=== PATIENT | female | born 1975 | race African-American/Black ===

== ENCOUNTER 2017-04-04 08:28 | Emergency (ER) | payer MEDICARE ==
[~2017-04-04] VITALS: Ht 160 cm; Wt 100.0 kg
[~2017-04-04 08:28] MED LIST: AMETHIA PO; AMITRIPTYLIN25 MG PO; AMOXICILLIN500 MG OR; ATROPINE 1% OP; B COMPLE2 PO; CIPRO500 MG OR; CLARITIN10 MG PO; CLONIDINE0.1 MG OR; DARVOCET-N 100100 MG OR; FLEXERIL PO; GABAPENTIN300 MG PO; HUMALOG100 MG/ML SC; HUMALOG100 UNIT/M SC; HUMULIN N1 ML SC; HUMULIN R1 M1 SC; HUMULIN R1 ML SC; HYDROCHLOROT12.5 M1 OR; KEFLEX500 MG PO; LANTUS100 MG/ML SC; LEVEMIR SC; LIPITOR20 MG PO; LISINOPRIL/HYDR1 TA1 PO; LISINOPRIL20 MG OR; LORTAB 5 OR; LORTAB 7.5 OR; LORTAB 7.57.5 MG PO; LOTREL1 CA1 OR; MUCINEX600 MG OR; NAPROSYN500 MG PO; NIFEDICAL XL30 MG PO; NIFEDIPINE30 MG PO; NIFEDIPINE60 M2 OR; NIFEDIPINE60 MG PO; NOVOLIN 70/30 SC; NOVOLIN N1 ML SC; NOVOLIN N1000 UNITS SC; NOVOLIN R IJ; PENICILLN VK500 MG PO; PERCOCET 10/31 COMBO PO; SEASONIQUE PO; TYLENOL # 31 TAB OR; ULTRAM50 MG PO; VICODIN1 TAB OR; ZITHROMAX250 MG OR; [UNRECOGNIZED DRUG - REMARK]
[2017-04-04] MEDS ORDERED: LISINOPRIL20 MG PO (08:33)
[2017-04-04] MEDS ORDERED: LANTUS SOL100 UNIT/M SC (08:35)
[2017-04-04] MEDS ORDERED: HUMALOG KW100 UNIT/M SC ×2 (08:36→08:37)
[2017-04-04] MEDS ORDERED: MAXIDE1 COMBO PO (08:38)
[2017-04-04] MEDS ORDERED: AMLODIPINE5 MG PO (08:38)
[2017-04-04] MEDS ORDERED: LYRICA50 MG PO (08:39)
[2017-04-04] MEDS ORDERED: MUCINEX600 MG PO (09:25)
[2017-04-04] MEDS ORDERED: AMOXICILLIN500 MG PO (09:25)
[2017-04-04 09:39] VITALS: BP 132/65
== END 2017-04-04 09:45 | disposition home or self-care (01) ==
LOC: ED 08:28
DX: J40 Bronchitis, not specified as acute or chronic (principal); H54.8 Legal blindness, as defined in USA; E11.9 Type 2 diabetes mellitus without complications; I10 Essential (primary) hypertension; Z79.4 Long term (current) use of insulin

== ENCOUNTER 2017-07-15 13:27 | Emergency (ER) | payer MEDICARE ==
[~2017-07-15] VITALS: Ht 160 cm; Wt 95.0 kg
[~2017-07-15 13:27] MED LIST changes: +AMLODIPINE5 MG PO; +AMOXICILLIN500 MG PO; +HUMALOG KW100 UNIT/M SC; +LANTUS SOL100 UNIT/M SC; +LISINOPRIL20 MG PO; +LYRICA50 MG PO; +MAXIDE1 COMBO PO; +MUCINEX600 MG PO
[2017-07-15] MEDS ORDERED: ULTRAM50 M1 PO (14:43)
[2017-07-15] MEDS ORDERED: CEPHALEXIN500 MG PO (14:43)
[2017-07-15 14:45] VITALS: BP 136/71
== END 2017-07-15 14:45 | disposition home or self-care (01) ==
LOC: ED 13:27
DX: J02.9 Acute pharyngitis, unspecified (principal); I88.9 Nonspecific lymphadenitis, unspecified; I10 Essential (primary) hypertension; E11.9 Type 2 diabetes mellitus without complications; H54.8 Legal blindness, as defined in USA; Z79.4 Long term (current) use of insulin

== ENCOUNTER 2018-02-21 17:36 | Emergency (ER) | payer MEDICARE ==
[~2018-02-21] VITALS: Ht 160 cm; Wt 90.0 kg
[~2018-02-21 17:36] MED LIST changes: +CEPHALEXIN500 MG PO; +ULTRAM50 M1 PO
[2018-02-21 18:10] LABS: URINE BLOOD DIPSTICK NEGATIVE (NEGATIVE); URINE COLOR YELLOW; URINE GLUCOSE - DIPSTICK NEGATIVE (NEGATIVE); URINE KETONE NEGATIVE (NEGATIVE); URINE LEUK ESTERASE NEGATIVE (NEGATIVE); URINE NITRITE - DIPSTICK NEGATIVE (Negative); URINE PH 5.5 (4.5-8.0); URINE PROTEIN - DIPSTICK >=300 mg/dL (NEG-TRACE); URINE SPECIFIC GRAVITY >=1.030; URINE UROBILINOGEN - DIPSTICK 0.2 E.U./dL (0.2)
[2018-02-21 18:11] LABS: URINE BILIRUBIN - DIPSTICK NEGATIVE (NEGATIVE); URINE CLARITY HAZY
[2018-02-21 18:22] LABS: URINE SQUAMOUS EPITHELIAL CELL MODERATE EPI/hpf (0-FEW)
[2018-02-21 18:33] LABS: HEMATOCRIT 38.6 % (37.0-47.0); HEMOGLOBIN 13.3 g/dl (12.0-16.0); IMMATURE GRANULOCYTES 0.4 % (0.0-1.0); MEAN CORPUSCULAR HGB 28.2 pG CALC (26.0-32.0); MEAN CORPUSCULAR HGB CONC 34.5 g/L CALC (32.0-36.0); NEUT# 5.95 thou/uL (2.00-7.15); RED BLOOD COUNT 4.71 mill/uL (4.20-5.60); RED CELL DISTRI WIDTH 13.5 % (11.5-15.5)
[2018-02-21] MEDS ORDERED: LOSARTAN POT25 MG PO (18:40)
[2018-02-21] MEDS ORDERED: TOUJEO SOL300 UNIT/M (18:40)
[2018-02-21 18:46] LABS: BILIRUBIN, TOTAL 1.2 mg/dL (0.0-1.4); CREATININE 1.4 mg/dL (0.5-1.0); POTASSIUM 4.2 mmol/l (3.5-5.1); TOTAL PROTEIN 7.6 g/dL (6.3-8.2)
[2018-02-21 20:34] VITALS: BP 139/68
[2018-02-21] MEDS ORDERED: CIPROFLOXACN500 MG PO (20:37)
[2018-02-21] MEDS ORDERED: PYRIDIUM200 MG PO (20:37)
== END 2018-02-21 20:33 | disposition home or self-care (01) ==
LOC: ED 17:36
DX: N39.0 Urinary tract infection, site not specified (principal); E11.39 Type 2 diabetes mellitus with other diabetic ophthalmic complication; H54.7 Unspecified visual loss

== ENCOUNTER 2018-11-19 16:11 | Emergency (ER) | payer MEDICARE ==
[~2018-11-19] VITALS: Ht 160 cm; Wt 91.4 kg
[~2018-11-19 16:11] MED LIST changes: +CIPROFLOXACN500 MG PO; +CLARITIN10 M1 PO; -CLARITIN10 MG PO; +LOSARTAN POT25 MG PO; +PYRIDIUM200 MG PO; +TOUJEO SOL300 UNIT/M
[2018-11-19] MEDS ORDERED: NEOMYCIN/POLYMY1 SOL AD ×2 (16:55→16:59)
[2018-11-19] MEDS ORDERED: AMOXICILLIN875 MG PO ×2 (16:55→16:59)
[2018-11-19 17:02] VITALS: BP 125/69
== END 2018-11-19 17:02 | disposition home or self-care (01) ==
LOC: ED 16:11
DX: H66.91 Otitis media, unspecified, right ear (principal); H60.91 Unspecified otitis externa, right ear

== ENCOUNTER 2019-09-07 | Emergency (ER) | payer MEDICARE ==
[~2019-09-07] MED LIST changes: +AMLODIPINE BESYL5 MG PO; -AMLODIPINE5 MG PO; +AMOXICILLIN875 MG PO; +COZAAR100 MG PO; -LOSARTAN POT25 MG PO; +NEOMYCIN/POLYMY1 SOL AD; -TOUJEO SOL300 UNIT/M; +TOUJEO SOL300 UNIT/M SC
[2019-09-07 09:12] LABS: ALBUMIN 4.3 g/dL (3.2-5.0); CREATININE 1.4 mg/dL (0.5-1.0); POTASSIUM 4.1 mmol/l (3.5-5.1); TOTAL PROTEIN 8.5 g/dL (6.3-8.2)
[2019-09-07 09:15] LABS: BILIRUBIN, TOTAL 0.7 mg/dL (0.0-1.4)
[2019-09-07] MEDS ORDERED: MAXZIDE-2537.5 MG/TA PO (09:22)
[2019-09-07] MEDS ORDERED: OZEMPIC2 MG/1.5 M SC (09:22)
[2019-09-07] MEDS ORDERED: GABAPENTIN800 MG PO (09:23)
[2019-09-07] MEDS ORDERED: [UNRECOGNIZED DRUG - CODE] PO (09:24)
[2019-09-07 09:29] LABS: HEMATOCRIT 35.7 % (37.0-47.0); HEMOGLOBIN 11.8 g/dl (12.0-16.0); IMMATURE GRANULOCYTES 0.4 % (0.0-5.0); MEAN CELL VOLUME 83.6 fL CALC (80.0-100.0); MEAN CORPUSCULAR HGB 27.6 pG CALC (26.0-32.0); MEAN CORPUSCULAR HGB CONC 33.1 g/L CALC (32.0-36.0); NEUT# 7.65 thou/uL (2.00-7.15); RED BLOOD COUNT 4.27 mill/uL (4.20-5.60); RED CELL DISTRI WIDTH 13.3 % (11.5-15.5)
[2019-09-07] MEDS ORDERED: DOXYCYCL HYC100 M4 PO (10:22)
== END 2019-09-07 10:40 | disposition home or self-care (01) ==
PROVIDERS: Family Medicine
DX: J06.9 Acute upper respiratory infection, unspecified (principal); I10 Essential (primary) hypertension; E11.40 Type 2 diabetes mellitus with diabetic neuropathy, unspecified; E11.69 Type 2 diabetes mellitus with other specified complication; H54.7 Unspecified visual loss; Z79.4 Long term (current) use of insulin

== ENCOUNTER 2019-12-07 | Emergency (ER) | payer MEDICARE ==
[~2019-12-07] MED LIST changes: +DOXYCYCL HYC100 M4 PO; +GABAPENTIN800 MG PO; +MAXZIDE-2537.5 MG/TA PO; +OZEMPIC2 MG/1.5 M SC; +[UNRECOGNIZED DRUG - CODE] PO
[2019-12-07 08:15] LABS: URINE BILIRUBIN - DIPSTICK NEGATIVE (NEGATIVE); URINE BLOOD DIPSTICK NEGATIVE (NEGATIVE); URINE COLOR YELLOW; URINE GLUCOSE - DIPSTICK NEGATIVE (NEGATIVE); URINE KETONE NEGATIVE (NEGATIVE); URINE LEUK ESTERASE NEGATIVE (NEGATIVE); URINE NITRITE - DIPSTICK NEGATIVE (Negative); URINE PH 5.5 (4.5-8.0); URINE PROTEIN - DIPSTICK NEGATIVE (NEG-TRACE); URINE UROBILINOGEN - DIPSTICK 0.2 E.U./dL (0.2)
[2019-12-07] MEDS ORDERED: DIFLUCAN150 MG PO (08:47)
[2019-12-07] MEDS ORDERED: NITROFURANTN100 M2 PO (08:47)
== END 2019-12-07 09:01 | disposition home or self-care (01) ==
PROVIDERS: Family Medicine
DX: B37.3 Candidiasis of vulva and vagina (principal); N39.0 Urinary tract infection, site not specified; I10 Essential (primary) hypertension; E11.40 Type 2 diabetes mellitus with diabetic neuropathy, unspecified; E11.69 Type 2 diabetes mellitus with other specified complication; H54.7 Unspecified visual loss; Z79.4 Long term (current) use of insulin

== ENCOUNTER 2020-01-28 18:08 | Emergency (ER) | payer MEDICARE ==
[~2020-01-28] VITALS: Ht 160 cm; Wt 87.2 kg
[~2020-01-28 18:08] MED LIST changes: +DIFLUCAN150 MG PO; +NITROFURANTN100 M2 PO
[2020-01-28 19:38] LABS: HEMATOCRIT 34.9 % (37.0-47.0); HEMOGLOBIN 11.5 g/dl (12.0-16.0); IMMATURE GRANULOCYTES 0.3 % (0.0-5.0); MEAN CELL VOLUME 83.9 fL CALC (80.0-100.0); MEAN CORPUSCULAR HGB 27.6 pG CALC (26.0-32.0); NEUT# 3.56 thou/uL (2.00-7.15); RED BLOOD COUNT 4.16 mill/uL (4.20-5.60); RED CELL DISTRI WIDTH 13.7 % (11.5-15.5)
[2020-01-28 19:39] LABS: URINE BILIRUBIN - DIPSTICK NEGATIVE (NEGATIVE); URINE BLOOD DIPSTICK LARGE (NEGATIVE); URINE COLOR YELLOW; URINE GLUCOSE - DIPSTICK NEGATIVE (NEGATIVE); URINE KETONE NEGATIVE (NEGATIVE); URINE LEUK ESTERASE NEGATIVE (NEGATIVE); URINE NITRITE - DIPSTICK NEGATIVE (Negative); URINE PROTEIN - DIPSTICK TRACE mg/dL (NEG-TRACE); URINE SPECIFIC GRAVITY 1.015; URINE UROBILINOGEN - DIPSTICK 0.2 E.U./dL (0.2)
[2020-01-28 19:50] LABS: URINE SQUAMOUS EPITHELIAL CELL FEW EPI/hpf (0-FEW)
[2020-01-28 19:58] LABS: ALBUMIN 4.4 g/dL (3.2-5.0); ALKALINE PHOSPHATASE 73 u/l (38-126); ANION GAP 13 (6-22 (CALC)); BILIRUBIN, TOTAL 0.7 mg/dL (0.0-1.4); BUN 24 mg/dL (7-17); BUN/CREATININE RATIO 17 (12-20 (CALC)); CARBON DIOXIDE 24 mmol/l (22-30); CHLORIDE 104 mmol/l (95-108); CREATININE 1.4 mg/dL (0.5-1.0); GFR 41 ML/MIN (>=60 (CALC)); GFR FOR AFR.AMER. 50 ML/MIN (>=60 (CALC)); POTASSIUM 4.3 mmol/l (3.5-5.1); SGOT/AST 28 u/l (14-36); SODIUM 137 mmol/l (137-146); TOTAL PROTEIN 8.2 g/dL (6.3-8.2)
[2020-01-28 21:55] VITALS: BP 127/60
== END 2020-01-28 21:55 | disposition home or self-care (01) ==
LOC: ED 18:08
PROVIDERS: Student in an Organized Health Care Education/Training Program
DX: R42 Dizziness and giddiness (principal); E86.0 Dehydration; I10 Essential (primary) hypertension; E11.22 Type 2 diabetes mellitus with diabetic chronic kidney disease; I12.9 Hypertensive chronic kidney disease with stage 1 through stage 4 chronic kidney disease, or unspecified chronic kidney disease; N18.3 Chronic kidney disease, stage 3 (moderate); E11.40 Type 2 diabetes mellitus with diabetic neuropathy, unspecified; E11.39 Type 2 diabetes mellitus with other diabetic ophthalmic complication; H54.3 Unqualified visual loss, both eyes; Z79.4 Long term (current) use of insulin

== ENCOUNTER 2020-08-25 11:46 | Emergency (ER) | payer MEDICARE ==
[~2020-08-25] VITALS: Ht 160 cm; Wt 82.7 kg
[2020-08-25] MEDS ORDERED: ZPAK PO (13:26)
[2020-08-25 14:00] VITALS: BP 148/81
[2020-08-26] MEDS ORDERED: ONDANSETRON4 MG PO (23:17)
== END 2020-08-25 13:55 | disposition home or self-care (01) ==
LOC: ED 11:46
DX: U07.1 COVID-19 (principal); E11.40 Type 2 diabetes mellitus with diabetic neuropathy, unspecified; E11.22 Type 2 diabetes mellitus with diabetic chronic kidney disease; I12.9 Hypertensive chronic kidney disease with stage 1 through stage 4 chronic kidney disease, or unspecified chronic kidney disease; N18.30 Chronic kidney disease, stage 3 unspecified; E11.39 Type 2 diabetes mellitus with other diabetic ophthalmic complication; H54.7 Unspecified visual loss; Z79.4 Long term (current) use of insulin

== ENCOUNTER 2020-08-26 20:05 | Emergency (ER) | payer MEDICARE ==
[~2020-08-26] VITALS: Ht 160 cm; Wt 82.7 kg
[~2020-08-26 20:05] MED LIST changes: +ZPAK PO
[2020-08-26 21:29] LABS: HEMATOCRIT 34.5 % (37.0-47.0); IMMATURE GRANULOCYTES 0.3 % (0.0-5.0); MEAN CELL VOLUME 86.5 fL CALC (80.0-100.0); MEAN CORPUSCULAR HGB 27.6 pG CALC (26.0-32.0); MEAN CORPUSCULAR HGB CONC 31.9 g/dL CAL (32.0-36.0); NEUT# 6.03 thou/uL (2.00-7.15); RED BLOOD COUNT 3.99 mill/uL (4.20-5.60); RED CELL DISTRI WIDTH 13.6 % (11.5-15.5)
[2020-08-26 21:30] LABS: URINE BLOOD DIPSTICK SMALL (NEGATIVE); URINE GLUCOSE - DIPSTICK NEGATIVE (NEGATIVE); URINE KETONE NEGATIVE (NEGATIVE); URINE LEUK ESTERASE TRACE (NEGATIVE); URINE PH 5.5 (4.5-8.0); URINE PROTEIN - DIPSTICK >=300 mg/dL (NEG-TRACE); URINE SPECIFIC GRAVITY 1.025
[2020-08-26 21:31] LABS: URINE BILIRUBIN - DIPSTICK SMALL (NEGATIVE); URINE COLOR ORANGE; URINE NITRITE - DIPSTICK POSITIVE (Negative)
[2020-08-26 21:36] LABS: URINE RBC 0-2 RBC/hpf (0-5); URINE SQUAMOUS EPITHELIAL CELL MODERATE EPI/hpf (0-FEW); URINE WBC 0-2 WBC/hpf (0-5)
[2020-08-26 21:47] LABS: ALBUMIN 4.5 g/dL (3.2-5.0); BILIRUBIN, TOTAL 2.8 mg/dL (0.0-1.4); CREATININE 1.8 mg/dL (0.5-1.0); TOTAL PROTEIN 8.7 g/dL (6.3-8.2)
[2020-08-26] MEDS ORDERED: ONDANSETRON4 MG PO (23:17)
[2020-08-26 23:30] VITALS: BP 139/61
[2020-08-27] MEDS ORDERED: PHENERGAN25 MG/TAB PO (09:31)
== END 2020-08-27 | disposition home or self-care (01) ==
LOC: ED 20:05
PROVIDERS: Emergency Medicine
DX: U07.1 COVID-19 (principal); R11.2 Nausea with vomiting, unspecified; R10.9 Unspecified abdominal pain; R53.1 Weakness; E86.0 Dehydration; I12.9 Hypertensive chronic kidney disease with stage 1 through stage 4 chronic kidney disease, or unspecified chronic kidney disease; E11.22 Type 2 diabetes mellitus with diabetic chronic kidney disease; N18.30 Chronic kidney disease, stage 3 unspecified; E11.39 Type 2 diabetes mellitus with other diabetic ophthalmic complication; H54.7 Unspecified visual loss; E11.40 Type 2 diabetes mellitus with diabetic neuropathy, unspecified; Z79.4 Long term (current) use of insulin

== ENCOUNTER 2020-08-29 09:36 | Inpatient (IN) | payer MEDICARE ==
[~2020-08-29] VITALS: Ht 160 cm; Wt 82.0 kg
[~2020-08-29 09:36] MED LIST changes: +ONDANSETRON4 MG PO; +PHENERGAN25 MG/TAB PO
[2020-08-29 10:19] LABS: HEMATOCRIT 35.1 % (37.0-47.0); HEMOGLOBIN 11.2 g/dl (12.0-16.0); IMMATURE GRANULOCYTES 0.4 % (0.0-5.0); MEAN CELL VOLUME 86.7 fL CALC (80.0-100.0); MEAN CORPUSCULAR HGB 27.7 pG CALC (26.0-32.0); MEAN CORPUSCULAR HGB CONC 31.9 g/dL CAL (32.0-36.0); NEUT# 3.99 thou/uL (2.00-7.15); RED BLOOD COUNT 4.05 mill/uL (4.20-5.60); RED CELL DISTRI WIDTH 13.7 % (11.5-15.5)
[2020-08-29 10:41] LABS: ALBUMIN 4.2 g/dL (3.2-5.0); ALKALINE PHOSPHATASE 64 u/l (38-126); AMYLASE 168 u/l (30-110); ANION GAP 14 (6-22 (CALC)); BILIRUBIN, TOTAL 2.5 mg/dL (0.0-1.4); BUN 30 mg/dL (7-17); BUN/CREATININE RATIO 17 (12-20 (CALC)); CARBON DIOXIDE 24 mmol/l (22-30); CHLORIDE 99 mmol/l (95-108); CREATININE 1.8 mg/dL (0.5-1.0); GFR 31 ML/MIN (>=60 (CALC)); GFR FOR AFR.AMER. 37 ML/MIN (>=60 (CALC)); LIPASE 731 u/l (23-300); POTASSIUM 4.2 mmol/l (3.5-5.1); SGOT/AST 82 u/l (14-36); SODIUM 133 mmol/l (137-146); TOTAL PROTEIN 8.4 g/dL (6.3-8.2)
[2020-08-29] MEDS ORDERED: AMETHIA PO (10:47)
[2020-08-29] MEDS ORDERED: ATORVASTATIN CA10 MG PO (10:47)
[2020-08-29 10:54] LABS: MYOGLOBIN 129 ng/mL (0 - 62)
[2020-08-29 16:04] VITALS: BP 119/69
[2020-08-29 19:15] VITALS: BP 146/68
[2020-08-29 23:35] VITALS: BP 132/62
[2020-08-30 04:35] LABS: HEMATOCRIT 31.1 % (37.0-47.0); IMMATURE GRANULOCYTES 0.4 % (0.0-5.0); MEAN CELL VOLUME 85.4 fL CALC (80.0-100.0); MEAN CORPUSCULAR HGB 27.5 pG CALC (26.0-32.0); MEAN CORPUSCULAR HGB CONC 32.2 g/dL CAL (32.0-36.0); NEUT# 3.4 thou/uL (2.00-7.15); RED BLOOD COUNT 3.64 mill/uL (4.20-5.60); RED CELL DISTRI WIDTH 13.4 % (11.5-15.5)
[2020-08-30 05:04] LABS: ALKALINE PHOSPHATASE 54 u/l (38-126); ANION GAP 12 (6-22 (CALC)); BILIRUBIN, TOTAL 1.8 mg/dL (0.0-1.4); BUN 32 mg/dL (7-17); BUN/CREATININE RATIO 15 (12-20 (CALC)); C-REACTIVE PROTEIN 5.3 mg/dL (0-0.9); CALCULATED LDLCHOLESTEROL 29 mg/dL (62-129 (CALC)); CARBON DIOXIDE 25 mmol/l (22-30); CHLORIDE 105 mmol/l (95-108); CHOLESTEROL HDL RATIO 3.5 (<4.4 (CALC)); CREATININE 2.1 mg/dL (0.5-1.0); GFR 26 ML/MIN (>=60 (CALC)); GFR FOR AFR.AMER. 31 ML/MIN (>=60 (CALC)); HDL CHOLESTEROL 29 mg/dL (>=40); LIPASE 936 u/l (23-300); POTASSIUM 4.5 mmol/l (3.5-5.1); SGOT/AST 67 u/l (14-36); SODIUM 137 mmol/l (137-146); TOTAL CHOLESTEROL 102 mg/dl (0-199); TOTAL TRIGLYCERIDES 221 mg/dl (30-149); VLDL CHOLESTROL 44 mg/dl (1-41 (CALC))
[2020-08-30 05:05] LABS: ALBUMIN 3.3 g/dL (3.2-5.0); TOTAL PROTEIN 6.6 g/dL (6.3-8.2)
[2020-08-30 05:25] VITALS: BP 142/62
[2020-08-30 08:49] VITALS: BP 115/58
[2020-08-30 11:00] VITALS: BP 112/53
[2020-08-30 15:44] VITALS: BP 129/54
[2020-08-30 20:00] VITALS: BP 155/76
[2020-08-30 23:50] VITALS: BP 158/84
[2020-08-31 04:00] VITALS: BP 149/67
[2020-08-31 05:07] LABS: ALBUMIN 3.2 g/dL (3.2-5.0); BILIRUBIN, TOTAL 1.2 mg/dL (0.0-1.4); CREATININE 1.6 mg/dL (0.5-1.0); POTASSIUM 4.6 mmol/l (3.5-5.1); TOTAL PROTEIN 6.6 g/dL (6.3-8.2)
[2020-08-31 08:16] VITALS: BP 125/63
[2020-08-31 10:57] VITALS: BP 153/74
[2020-08-31 11:07] VITALS: BP 148/88
[2020-08-31 16:00] VITALS: BP 157/82
[2020-08-31 19:50] VITALS: BP 134/67
[2020-09-01] VITALS: BP 161/61
[2020-09-01 04:00] VITALS: BP 129/63
[2020-09-01 05:37] LABS: HEMATOCRIT 28.9 % (37.0-47.0); HEMOGLOBIN 9.2 g/dl (12.0-16.0); IMMATURE GRANULOCYTES 0.7 % (0.0-5.0); MEAN CORPUSCULAR HGB 27.4 pG CALC (26.0-32.0); MEAN CORPUSCULAR HGB CONC 31.8 g/dL CAL (32.0-36.0); NEUT# 4.28 thou/uL (2.00-7.15); RED BLOOD COUNT 3.36 mill/uL (4.20-5.60); RED CELL DISTRI WIDTH 13.4 % (11.5-15.5)
[2020-09-01 05:54] LABS: ALBUMIN 2.9 g/dL (3.2-5.0); BILIRUBIN, TOTAL 0.9 mg/dL (0.0-1.4); C-REACTIVE PROTEIN 4.4 mg/dL (0-0.9); CREATININE 1.4 mg/dL (0.5-1.0); POTASSIUM 4.2 mmol/l (3.5-5.1)
[2020-09-01 08:00] VITALS: BP 129/68
[2020-09-01 10:30] VITALS: BP 169/74
[2020-09-01 15:00] VITALS: BP 154/67
[2020-09-01 19:00] VITALS: BP 144/61
[2020-09-02] VITALS: BP 139/63
[2020-09-02 04:00] VITALS: BP 139/68
[2020-09-02 05:14] LABS: HEMATOCRIT 27.2 % (37.0-47.0); HEMOGLOBIN 8.6 g/dl (12.0-16.0); IMMATURE GRANULOCYTES 2.4 % (0.0-5.0); MEAN CELL VOLUME 87.2 fL CALC (80.0-100.0); MEAN CORPUSCULAR HGB 27.6 pG CALC (26.0-32.0); MEAN CORPUSCULAR HGB CONC 31.6 g/dL CAL (32.0-36.0); NEUT# 5.21 thou/uL (2.00-7.15); RED BLOOD COUNT 3.12 mill/uL (4.20-5.60); RED CELL DISTRI WIDTH 13.2 % (11.5-15.5)
[2020-09-02 05:32] LABS: ALBUMIN 2.7 g/dL (3.2-5.0); BILIRUBIN, TOTAL 0.9 mg/dL (0.0-1.4); CREATININE 1.4 mg/dL (0.5-1.0); POTASSIUM 4.4 mmol/l (3.5-5.1); TOTAL PROTEIN 5.9 g/dL (6.3-8.2)
[2020-09-02 07:59] VITALS: BP 130/59
[2020-09-02 11:30] VITALS: BP 137/50
[2020-09-02 16:00] VITALS: BP 115/56
[2020-09-02 19:00] VITALS: BP 161/60
[2020-09-03] VITALS (23 sets, daily range): BP systolic 84–188; BP diastolic 46–82
[2020-09-03 06:04] LABS: HEMATOCRIT 29.9 % (37.0-47.0); HEMOGLOBIN 9.3 g/dl (12.0-16.0); IMMATURE GRANULOCYTES 4.5 % (0.0-5.0); MEAN CELL VOLUME 87.9 fL CALC (80.0-100.0); MEAN CORPUSCULAR HGB 27.4 pG CALC (26.0-32.0); MEAN CORPUSCULAR HGB CONC 31.1 g/dL CAL (32.0-36.0); NEUT# 9.96 thou/uL (2.00-7.15); RED BLOOD COUNT 3.4 mill/uL (4.20-5.60); RED CELL DISTRI WIDTH 13.6 % (11.5-15.5)
[2020-09-03 06:33] LABS: BILIRUBIN, TOTAL 1.1 mg/dL (0.0-1.4); CREATININE 1.4 mg/dL (0.5-1.0); POTASSIUM 4.9 mmol/l (3.5-5.1); TOTAL PROTEIN 6.4 g/dL (6.3-8.2)
[2020-09-03 07:01] LABS: C-REACTIVE PROTEIN 14.9 mg/dL (0-0.9)
[2020-09-03 12:07] LABS: URINE BILIRUBIN - DIPSTICK NEGATIVE (NEGATIVE); URINE BLOOD DIPSTICK LARGE (NEGATIVE); URINE COLOR YELLOW; URINE GLUCOSE - DIPSTICK NEGATIVE (NEGATIVE); URINE KETONE NEGATIVE (NEGATIVE); URINE LEUK ESTERASE NEGATIVE (NEGATIVE); URINE NITRITE - DIPSTICK NEGATIVE (Negative); URINE PH 5.5 (4.5-8.0); URINE PROTEIN - DIPSTICK >=300 mg/dL (NEG-TRACE); URINE UROBILINOGEN - DIPSTICK 0.2 E.U./dL (0.2)
[2020-09-03 12:17] LABS: URINE AMORPH SEDIMENT FEW hpf (NONE-FEW)
[2020-09-03 12:19] LABS: URINE COARSE GRANULAR CAST FEW lpf; URINE HYALINE CAST FEW lpf (NONE-RARE)
[2020-09-04] VITALS (79 sets, daily range): BP systolic 80–186; BP diastolic 50–82
[2020-09-04 06:14] LABS: HEMATOCRIT 25.6 % (37.0-47.0); HEMOGLOBIN 8.1 g/dl (12.0-16.0); MEAN CELL VOLUME 86.8 fL CALC (80.0-100.0); MEAN CORPUSCULAR HGB 27.5 pG CALC (26.0-32.0); MEAN CORPUSCULAR HGB CONC 31.6 g/dL CAL (32.0-36.0); RED BLOOD COUNT 2.95 mill/uL (4.20-5.60); RED CELL DISTRI WIDTH 13.7 % (11.5-15.5)
[2020-09-04 06:53] LABS: ALBUMIN 2.5 g/dL (3.2-5.0); BILIRUBIN, TOTAL 0.7 mg/dL (0.0-1.4); CREATININE 1.4 mg/dL (0.5-1.0); POTASSIUM 4.8 mmol/l (3.5-5.1); TOTAL PROTEIN 5.5 g/dL (6.3-8.2)
[2020-09-04 06:56] LABS: C-REACTIVE PROTEIN 18.2 mg/dL (0-0.9)
== END 2020-09-04 21:25 | disposition short-term general hospital (02) | DRG 208 ==
LOC: ED 09:36 → ED-I 13:18 → ED 13:43 → MS2 13:44 → ED-I 09-03 05:15 → ICU 09-03 10:11
PROVIDERS: Emergency Medicine; Internal Medicine; Nurse Practitioner; Nurse Practitioner Family; ADMIT Internal Medicine; ATTEND Nurse Practitioner Family
PROC: 06HY33Z Insertion of Infusion Device into Lower Vein, Percutaneous Approach (ICD-10-PCS; principal; 2020-08-30)
PROC: 5A09357 Assistance with Respiratory Ventilation, Less than 24 Consecutive Hours, Continuous Positive Airway Pressure (ICD-10-PCS; 2020-09-03)
PROC: XW043E5 Introduction of Remdesivir Anti-infective into Central Vein, Percutaneous Approach, New Technology Group 5 (ICD-10-PCS; 2020-09-03)
PROC: 5A1935Z Respiratory Ventilation, Less than 24 Consecutive Hours (ICD-10-PCS; 2020-09-04)
PROC: 0BH17EZ Insertion of Endotracheal Airway into Trachea, Via Natural or Artificial Opening (ICD-10-PCS; 2020-09-04)
DX: U07.1 COVID-19 (principal); J12.82 Pneumonia due to coronavirus disease 2019; K85.90 Acute pancreatitis without necrosis or infection, unspecified; J96.01 Acute respiratory failure with hypoxia; I12.9 Hypertensive chronic kidney disease with stage 1 through stage 4 chronic kidney disease, or unspecified chronic kidney disease; E11.22 Type 2 diabetes mellitus with diabetic chronic kidney disease; N18.30 Chronic kidney disease, stage 3 unspecified; E11.40 Type 2 diabetes mellitus with diabetic neuropathy, unspecified; E11.39 Type 2 diabetes mellitus with other diabetic ophthalmic complication; H54.7 Unspecified visual loss; R19.7 Diarrhea, unspecified; R11.2 Nausea with vomiting, unspecified; E86.0 Dehydration; D64.9 Anemia, unspecified; N28.9 Disorder of kidney and ureter, unspecified; Z79.4 Long term (current) use of insulin; Z78.1 Physical restraint status; Z87.440 Personal history of urinary (tract) infections
CPT/HCPCS: J1650; J2060; Q9967; S0164

== ENCOUNTER 2020-09-21 13:08 | Inpatient (IN) | payer MEDICARE ==
[~2020-09-21] VITALS: Ht 160 cm; Wt 92.0 kg
--- NOTE | 2020-09-21 12:44 | NUR ---
PT ARRIVED TO [facility] ROOM 282 VIA MEDICAL TRANSPORT IN STABLE CONDITION. ASSSITED PT IN GETTING SETTLED.
[2020-09-21 12:45] VITALS: BP 188/70
--- NOTE | 2020-09-21 12:56 | NUR ---
RECIEVED REPORT FROM RAMSEY JOHNSON AT [facility].
[~2020-09-21 13:08] MED LIST changes: +ATORVASTATIN CA10 MG PO
--- NOTE | 2020-09-21 13:10 | NUR ---
REPORT GIVEN TO MARY MUSTAFA.
--- NOTE | 2020-09-21 13:15 | NUR ---
REPORT WAS RECEIVED FROM PADDY JACOME. PATIENT IS RESTINIG IN BED WITH 02 AT 3L VIA. PO FLUIDS PROVIED. PAIN DENIES NEEDS. CALL LIGHT IN REACH.
[2020-09-21 14:00] VITALS: BP 182/78
--- NOTE | 2020-09-21 14:00 | NUR ---
ASSESSMENT DONE. PATIENT IS A&O X3. PATIENT IS BLIND. PATIENT DENIES PAIN AT THIS TIME. LUNGS SOUND/DIMINISHED. O2 AT 3L VIA NC AND O2 READING 92%. BOONE IS PATENT WITH YELLOW URINE. BOONE WAS PLACE AT [facility] 09/21/20. RECTAL TUBE IS PATENT WITH SMALL BROWN LOOSE STOOL NOTED AND RECTAL TUBE WAS PLACE BY [facility] 09/08/20. TELE APPLIED # [id number]. #20 LFA FLUSH WELL. IV DRESSING CHANGE WAS DONE 09/19/20 BY [facility] NURSE. PATIENT WAS POSTIVE FOR THE COVID 08/26/[address]. PATIENT DENIES ANY NEEDS AT THIS TIME. CALL LIGHT IN REACH.
[2020-09-21 17:05] VITALS: BP 182/66
--- NOTE | 2020-09-21 17:15 | NUR ---
GERIATRIC SOCIAL WORK PROFESSOR AND I ASSISTED PATIENT TO TRANSFER TO THE RECLINER. MEDICATED PATIENT WITH LABETALOL IV FOR BP 182/66, P- 100, 02 100%. PATIENT DENIES ANY SOB. PATIENT DENIES ANY OTHER NEEDS AT THIS TIME. CALL LIGHT IN REACH.
[2020-09-21 18:25] VITALS: BP 177/75
[2020-09-21 19:30] VITALS: BP 160/76
--- NOTE | 2020-09-21 19:50 | NUR ---
PT IS SLEEPING, LIGHTS AND TV ARE ON LOW, NO S/O DISTRESS NOTED. GETTER WELDER ENTERING THE ROOM AT THIS TIME TO OBTAIN ACCU-CHECK.
--- NOTE | 2020-09-21 20:55 | NUR ---
PT SLEEPING, AWOKE AND RESPONDED TO MY VOICE, BUT APPEARS VERY GROGGY. SHE DID TAKE DEEP BREATHS FOR ME, REPSOND TO ASSESSMENT QUESTIONS, AND WAS ABLE TO SWALLOW HER PILLS, BUT OTHERWISE SOUNDED VERY GROGGY IN RESPONSES. RECTAL TUBE IN PLACE AND BOONE CATH DRAINING TO GRAVITY. PT DENIED ANY NEEDS AT THIS TIME, BUT WAS ENCOURAGED TO CALL NEEDS ARISE.
--- NOTE | 2020-09-21 23:49 | NUR ---
PT MEDICATED FOR ELEVATED BP. PT EYES ARE CLOSED, SHE WAS SLEEPING WHEN I ENTERED THE ROOM, AWOKE TO MY VOICE AND ANSWERED QUESTIONS WITH ONE WORD ANSWERS ONLY. PHYSICIAN ANESTHESIOLOGIST IN TO BOOST PT AND REPOSITION, PILLOW PLACED UNDER R.SIDE FOR PRESSURE CARE. HOB ELEVATED 30 DEGREES. IV SITE FLUSHED PATENT.
[2020-09-22] VITALS (15 sets, daily range): BP systolic 136–180; BP diastolic 59–96
--- NOTE | 2020-09-22 01:35 | NUR ---
PT SLEEPING, NO S/O DISTRESS NOTED AT THIS TIME. PT REPOSITIONED WITH PILLOWS. OXYGEN NC ON 3L
--- NOTE | 2020-09-22 03:53 | NUR ---
SENIOR SOFTWARE QUALITY ANALYST IN OBTAINING V/S AT THIS TIME. BOONE CATH DRAINING CLEAR YELLOW URINE, 200CC EMPTIED AT THIS TIME. I TRIED TO GET PT TO TALK TO ME, SHE ANSWERED DIRECT QUESTIONS WITH ONE WORD ANSWERS ONLY. WHEN ASKED IF I COULD GET HER ANYTHING, SHE REPLIED "WATER" I ASSISTED HER TO DRINK THICKENED WATER 60CC. PT WAS REPOSITIONED WITH PILLOWS TO LEFT SIDE. WHEN ASKED IF THERE WAS ANYTHING ELSE WE COULD DO FOR HER SHE ASKED IF SHE COULD HAVE SOME ICECREAM/PROVIDED, I FED HER 1/2 CONTAINER OF ICECREAM AT THIS TIME ALSO. PRIOR TO MY LEAVING THE ROOM SHE ASKED IF I WOULD SCRATCH HER FEET FOR HER/PROVIDED. PT DENIED ANY OTHER NEEDS AT THIS TIME, CALL LIGHT IS IN PT HAND FOR EASY FINDING. PT IN BED. OXYGEN SAT LEVELS 99% ON 3L, TITRATED DOWN TO 2L WITH 95% SAT LEVELS MAINTAINED. PT COUGHING SEVERAL TIMES WHILE I WAS IN THE ROOM TO CLEAR AIRWAY.
[2020-09-22 05:35] LABS: HEMATOCRIT 29.3 % (37.0-47.0); HEMOGLOBIN 9.3 g/dl (12.0-16.0); IMMATURE GRANULOCYTES 0.9 % (0.0-5.0); MEAN CELL VOLUME 89.3 fL CALC (80.0-100.0); MEAN CORPUSCULAR HGB 28.4 pG CALC (26.0-32.0); MEAN CORPUSCULAR HGB CONC 31.7 g/dL CAL (32.0-36.0); NEUT# 10.48 thou/uL (2.00-7.15); RED BLOOD COUNT 3.28 mill/uL (4.20-5.60); RED CELL DISTRI WIDTH 15.4 % (11.5-15.5)
[2020-09-22 06:01] LABS: BILIRUBIN, TOTAL 0.6 mg/dL (0.0-1.4); C-REACTIVE PROTEIN 6.2 mg/dL (0-0.9); TOTAL PROTEIN 6.5 g/dL (6.3-8.2)
[2020-09-22 06:03] LABS: ALBUMIN 3.1 g/dL (3.2-5.0)
--- NOTE | 2020-09-22 06:08 | NUR ---
LAB CALLED TO REPORT CRITICAL BUN OF 88. PHYSICIAN NOTIFIED.
[2020-09-22 06:43] LABS: POTASSIUM 3.4 mmol/l (3.5-5.1)
--- NOTE | 2020-09-22 07:52 | NUR ---
REPORT REC FROM Dakota/FABIAN RN. PT SITTING IN BED IN LOW FOWLERS POSITION. PT ABLE TO FOLLOW SIMPLE COMMANDS, LIKE OPENING AND CLOSING HER EYES. UNABLE TO LIFT EXTREMITIES AT THIS TIME. BOONE CATHETER AND RECTAL TUBE IN PLACE. O2 VIA NC @2L, TITRATED UP TO 3L, O2 SUSTAINING 92%. BILATERAL HEEL PROTECTORS TO BE PLACED. TRACE EDEMA NOTED TO BLE. ASSESSMENT COMPLETED, DISCUSSED POC, REINFORCEMENT NEEDED. CALL LIGHT WITHIN REACH.
--- NOTE | 2020-09-22 08:56 | NUR ---
MEDICATIONS CRUSHED AND GIVEN WITH APPLE SAUCE, PT ABLE TO TOLERATE SPOONFULLS CONTAINING MEDICATIONS. PT BEGAN SPITTING OUT AND NOT TOLERATING APPLE SAUCE AFTER. PT IN HIGH FOWLERS POSITION.
--- NOTE | 2020-09-22 09:26 | NUR ---
DR ALEJO AND Heath RIOJAS AT BEDSIDE
--- NOTE | 2020-09-22 10:04 | NUR ---
RT AT BEDSIDE OBTAINING ABG
--- NOTE | 2020-09-22 11:34 | NUR ---
SPEECH THERAPY AT BEDSIDE
[2020-09-22] MEDS ORDERED: COZAAR50 MG PO (12:05)
[2020-09-22] MEDS ORDERED: FERR SULFATE325 MG PO (12:08)
[2020-09-22] MEDS ORDERED: MECLIZINE25 MG PO (12:09)
[2020-09-22] MEDS ORDERED: CLINDAMYCIN PHOSP (12:14)
--- NOTE | 2020-09-22 15:00 | NUR ---
PT TAKEN FROM CT TO ICU, BEDSIDE REPORT GIVEN TO Misael MCGRAW RN
--- NOTE | 2020-09-22 15:00 | NUR ---
RECEIVED PT IN BED FROM MED SURG ACCOMPANIED BY NURSE AND PAPER SORTER AND COUNTER X2. BEDSIDE REPORT RECEIVED FROM LISETTE MUSTAFA. TEMP OF 101.3. PT DIAPHORETIC ACCU CHECK DONE 55. GAVE D10 PER OCT. IVF STARTED. Janeth CANO PHONED FOR NEW ORDERS WELL. RESP ARE SHALLOW AT A RR OF 35-40. PT ABLE TO STATE HER NAME AND MONTH AND DAY OF . PT MOSTLY ANSWERS OK TO QUESTIONS. REORIENTATION UNSUCCESFFUL. CALL LIGHT IN REACH. WILL CONTINUE TO MONITOR.
--- NOTE | 2020-09-22 16:16 | NUR ---
TEMP RECHECKED 101.1 ACCUCHECK 123 AT THIS TIME. RESP RATE CONTINUES TO BE IN THE UPPER 30S. [facility] WILL CONTINUE TO MONITOR
--- NOTE | 2020-09-22 16:59 | NUR ---
NEW ORDERS RECEIVED FROM Heath CANO. UA OBTAINED AND SENT TO LAB. #20 PLACED IN LAC. UNABLE TO OBTAIN ENOUGH BLOOD FOR SPECIMEN. LAB AT BEDSIDE FOR BLOOD DRAW. PT CONTINUES TO BE DIAPHORETIC. TEMP 100.5. ACCUCHECK 93. WILL CONTINUE TO MONITOR CLOSELY
--- NOTE | 2020-09-22 17:14 | NUR ---
RT AT BEDSIDE FOR REPEAT ABG
[2020-09-22 17:17] LABS: URINE BILIRUBIN - DIPSTICK NEGATIVE (NEGATIVE); URINE BLOOD DIPSTICK SMALL (NEGATIVE); URINE COLOR YELLOW; URINE GLUCOSE - DIPSTICK NEGATIVE (NEGATIVE); URINE KETONE NEGATIVE (NEGATIVE); URINE LEUK ESTERASE NEGATIVE (Negative); URINE NITRITE - DIPSTICK NEGATIVE (Negative); URINE PH 5.5 (4.5-8.0); URINE PROTEIN - DIPSTICK 100 mg/dL (NEG-TRACE); URINE UROBILINOGEN - DIPSTICK 0.2 E.U./dL (0.2)
[2020-09-22 17:21] LABS: URINE AMORPH SEDIMENT FEW hpf (NONE-FEW); URINE CLARITY HAZY; URINE SQUAMOUS EPITHELIAL CELL FEW EPI/hpf (0-FEW); URINE WBC 0-2 WBC/hpf (0-5)
--- NOTE | 2020-09-22 17:32 | NUR ---
O2 INCREASED TO 10L HIGH [place]VING NASAL CANNULA. SPO2 PROBE MOVED TO R GREAT TOE DUE TO ARTIFICIAL NAILS NOT ALLOWING ACCURATE READING. SPO2 NOW CORRELATES WITH ABG.
--- NOTE | 2020-09-22 17:41 | NUR ---
ATTEMPTED TO SEE PATIENT FOR PT EVALUATION. PT NOT AVAILABLE OR APPROPRIATE AT TIME. PT CURRENTLY BEING WITH DECLINE IN STATUS AND WAS BEING TRANSPORTED TO CT AND THEN TRANSFERRED TO ICU.
--- NOTE | 2020-09-22 17:41 | NUR ---
Nieves VENCES APRN NOTIFIED OF ABG RESULTS AND LABS.
--- NOTE | 2020-09-22 18:04 | NUR ---
O2 INCREASED TO 12L [place] FOR SPO2 OF 89.
--- NOTE | 2020-09-22 18:26 | NUR ---
DR ALEJO PHONED FOR UPDATE. UPDATE PROVIDED. NEW ORDERS RECEIVED. DR DENT NOTIFIED OF NEED OF TLC NEEDED.IVF CHANGED. RT NOTIFIED OF NEED OF BIPAP AT NIGHT.
--- NOTE | 2020-09-22 19:10 | NUR ---
appropriately nods head yes & no to questions. bipap conts. no resp diff. hob remains elevated. zoogler shows sinus rhythm hr 88. #20 lac saline lock. #20 lfa. ivf changed to d5ns @ 75cchr. alonzo cath in place. urine clear yellow. dignishield in place-no drainage. fall & air/contact precautions cont. requires total assist with care.
--- NOTE | 2020-09-22 19:20 | NUR ---
dr fregoso here. rt groin tlc placed.
--- NOTE | 2020-09-22 22:00 | NUR ---
bipap cont. nad. cardiac catheterization technician shows sinus rhythm hr 88. alonzo draining well.
[2020-09-23] VITALS (24 sets, daily range): BP systolic 125–180; BP diastolic 44–85
--- NOTE | 2020-09-23 00:01 | NUR ---
bipap cont. nad. color television console monitor shows sinus rhythm hr 88.
--- NOTE | 2020-09-23 02:00 | NUR ---
eyes closed. no distress. bipap cont. alonzo draining well.
--- NOTE | 2020-09-23 04:00 | NUR ---
eyes closed. nad. clinical research monitor shows sinus rhythm hr 72.
--- NOTE | 2020-09-23 04:40 | NUR ---
blood drawn & sent to lab.
--- NOTE | 2020-09-23 05:29 | NUR ---
environmental monitoring specialist shows approx 15 sec 2nd degree type 2 hr 49.
[2020-09-23 05:35] LABS: BUN 72 mg/dL (7-17); CARBON DIOXIDE 34 mmol/l (22-30); CHLORIDE 107 mmol/l (95-108); GFR 17 ML/MIN (>=60 (CALC)); GFR FOR AFR.AMER. 21 ML/MIN (>=60 (CALC)); MAGNESIUM 1.9 mg/dL (1.6-2.3); POTASSIUM 3.1 mmol/l (3.5-5.1); SODIUM 149 mmol/l (137-146)
--- NOTE | 2020-09-23 06:45 | NUR ---
REPORT RECEIVED FROM CHERYL THOMASON. CARE ASSUMED.
--- NOTE | 2020-09-23 07:00 | NUR ---
PT RESTING IN BED WITH EYES CLOSED. PT IS ALERT AND ORIENTED X3. PT RESPONDS APPROPRIATELY AND FOLLOWS COMMANDS. PT IS WEAK BUT ATTEMPTS COMMANDS. TEMP 101.3 AXILLARY. TYLENOL IV GIVEN PER OCT. SHIFT ASSESSMENT COMPLETED AT THIS TIME. IV PATENT X3. CALL LIGHT IN REACH. PLACED ELECTRODE ON NURSE CALL LIGHT TO ASSIST PATIENT IN BEING ABLE TO LOCATE. PT GAVE RETURN DEMONSTRATION OF USE OF CALL LIGHT. WILL CONTINUE TO MONITOR CLOSELY.
[2020-09-23 07:03] LABS: HEMATOCRIT 27.8 % (37.0-47.0); HEMOGLOBIN 8.7 g/dl (12.0-16.0); IMMATURE GRANULOCYTES 0.5 % (0.0-5.0); MEAN CORPUSCULAR HGB 28.2 pG CALC (26.0-32.0); MEAN CORPUSCULAR HGB CONC 31.3 g/dL CAL (32.0-36.0); NEUT# 11.19 thou/uL (2.00-7.15); RED BLOOD COUNT 3.09 mill/uL (4.20-5.60); RED CELL DISTRI WIDTH 15.6 % (11.5-15.5)
--- NOTE | 2020-09-23 07:50 | NUR ---
RT AT BEDSIDE TO TAKE PATIENT OFF OF BIPAP. PT PLACED ON O2 15L HIGH [place].
--- NOTE | 2020-09-23 08:21 | NUR ---
DR ALEJO AT BEDSIDE AT THIS TIME.
--- NOTE | 2020-09-23 08:35 | NUR ---
TITRATED O2 TO 12L HIGH [place]VING NASAL CANNULA.
--- NOTE | 2020-09-23 09:10 | NUR ---
PT REQUESTING SOMETHING TO EAT. EXPLAINED THAT SHE IS NPO AT THIS TIME. AFTER SPEECH CLARENCE WILL FEED IF APPROVED. PT STATES SHE THINKS HER BLOOD SUGAR IS LOW. ACCUCHECK OBTAINED AND IT IS 83 PT MADE AWARE. CALL LIGHT IN REACH. WILL CONTINNUE TO [facility].
--- NOTE | 2020-09-23 09:56 | NUR ---
SPEECH THERAPY AT BEDSIDE FOR SWALLOW EVAL.
--- NOTE | 2020-09-23 10:20 | NUR ---
Patient received sleeping in bed. Patient alert and oriented. Able to follow commands. She is on 15L oxygen via HiFlow. Sating at 90 upon clinician arrival to room. Vocal quality is somewhat hoarse at baseline. Patient given therapeutic PO trials of ice-chips, thin liquids via open cup, nectar thick liquids via straw, and pureed solids. Patient presented with a suspected delayed pharyngeal swallow, multiple swallows (5+), and decreased hyolaryngeal elevation with thin liquids. Suspect reduced oral containment given overall disorganized swallow. Immediately following thin liquid trials, patient's oxygen saturation dropped from 90%-85%. RNMyah was notified and therapist proceeded with swallow evaluation. Oxyen saturations remained between 84-88% for the rest of the swallow evaluation. Patient presented with an increased oral transit time, suspected delayed pharyngeal swallow, multiple swallows, and decreased hyolaryngeal elevation with nectar thick liquids and pureed solids. She presented with no overt s/s of penetration/aspiration. Vocal quality was clear following trials. Patient educated on the results of today's evaluation including diet texture recommendations and aspiration precautions. We discussed the risk for aspiration given her current respiratory status. Recommend pureed solids and nectar thick liquids. Aspiration Precautions to incude: HOB upright at 90 degrees or OOB for all meals, small bites and sips, liquids via straw, as patient is having difficulties self-feeding, assistance with meals, remain upright after meals for >30 minutes. Discussed recommendations with nursing staff and medical team.
--- NOTE | 2020-09-23 10:38 | NUR ---
PHYSICAL THERAPY AT BEDSIDE.
--- NOTE | 2020-09-23 11:36 | NUR ---
PT PULLED OFF O2. SPO2 DOWN TO 50%. PLACED O2 15L HIGH [place] NASAL CANNULA ON PATIENT. O2 SATS ONLY CAME UP TO 78%. PLACEDPT BACK ON BIPAP AT PREVIOUS SETTINGS. PT TOLERATED WELL. PT SEEMS TO BE MORE CONFUSED AT THIS TIME WILL LEAVE ON BIPAP THROUGH LUNCH AND REASSESS AT DINNER TIME.
--- NOTE | 2020-09-23 12:03 | NUR ---
NOTED ON MANAGER HYDRAULIC PT IS IN A SECOND DEGREE TYPE 2 BLOCK. THIS LASTED FOR ABOUT 30 SECONDS AND PT CONVERTED BACK TO SINUS RHYTHM. Heath CHAPA APRN MADE AWARE AT THIS TIME. NEW ORDERS RECEIVED TO BISI CLEVELAND FOR CARDIOLOGY.
--- NOTE | 2020-09-23 12:08 | NUR ---
CALLED [facility] AT SPOKE TO MAYELIN AND WAS GIVEN CONFIRMATION NUMBER [id number].
--- NOTE | 2020-09-23 12:25 | NUR ---
INCREASED FIO2 TO 70% TO MAINTAIN SPO2 OF 92%
--- NOTE | 2020-09-23 12:40 | NUR ---
DR CLEVELAND NOTIFIED OF CONSULT.
--- NOTE | 2020-09-23 13:48 | NUR ---
PT GIVEN COMPLETE BED BATH. BOONE CARE PROVIDED. RECTAL TUBE REMOVED. LINEN CHANGE. PT TOLERATED WELL. PT DID DESAT ON BIPAP WHEN TURNING SIDE TO SIDE TO 85%. FEET ELEVATED AND HEEL PROTECTORS IN PLACE. CALL LIGHT IN REACH. WILL CONTINUE TO MONTIOR.
--- NOTE | 2020-09-23 14:03 | NUR ---
MOTHER PHONED FOR UPDATE. UPDATE PROVIDED.
--- NOTE | 2020-09-23 16:22 | NUR ---
ELIZABETH BARKLEY CANVAS CUTTER MACHINE INTO SEE PATIENT AT THIS TIME. POTASSIUM LEVEL OBTAINED AT THIS TIME WELL.
--- NOTE | 2020-09-23 17:15 | NUR ---
DR CLEVELAND NOTIFIED OF 1600 POTASSIUM 3.2.
--- NOTE | 2020-09-23 17:27 | NUR ---
PT TRANSFERRED FROM BED TO BED WITH AIR MATTRESS AT THIS TIME. PT PLACED ON O2 HI IRVING NASAL CANNULA AND DESATS TO 61%.WILL HOLD DINNER TRAY. CALL LIGHT IN REACH. WILL CONTINUE TO MONITOR,
--- NOTE | 2020-09-23 18:13 | NUR ---
TEMP RECHECK 100.2. IV POTASSIUM 20MEQ STARTED PER OCT.
--- NOTE | 2020-09-23 19:00 | NUR ---
eyes are closed but does follow ALL directions. bipap cont. no resp diff. playground monitor shows sinus hythm hr 84. rt groin tlc in place. d5ns w 20kcl infusing @ 75cchr. alonzo cath in place. urine clear yellow. air mattress, fall & air/contact precautions cont. requires total care for all needs. turned & repositioned.
--- NOTE | 2020-09-23 22:00 | NUR ---
bipap cont. no resp diff. cardiac tech shows sinus rhythm hr 96.
--- NOTE | 2020-09-23 23:30 | NUR ---
pt coughed up mod amount yellow sputum. face cleansed by pt & assisted by this signwriter. pt asked this signwriter "is this super bowl tuesday?" instructed pt the day & time. also instructed pt the [employer] smeared the chiefs 31 to 9 & she missed the weekend (halftime entertainment). pt verbalized understanding.
[2020-09-24] VITALS (51 sets, daily range): BP systolic 43–193; BP diastolic 32–92
--- NOTE | 2020-09-24 02:00 | NUR ---
eyes closed. bipap cont. nad. infrastructure software engineer shows sinus tach hr 100.
--- NOTE | 2020-09-24 05:15 | NUR ---
blood drawn & sent to lab.
[2020-09-24 05:47] LABS: HEMATOCRIT 28.7 % (37.0-47.0); HEMOGLOBIN 8.6 g/dl (12.0-16.0); IMMATURE GRANULOCYTES 0.7 % (0.0-5.0); MEAN CELL VOLUME 92.6 fL CALC (80.0-100.0); MEAN CORPUSCULAR HGB 27.7 pG CALC (26.0-32.0); NEUT# 11.3 thou/uL (2.00-7.15); RED BLOOD COUNT 3.1 mill/uL (4.20-5.60); RED CELL DISTRI WIDTH 15.5 % (11.5-15.5)
[2020-09-24 06:10] LABS: CREATININE 2.4 mg/dL (0.5-1.0); POTASSIUM 3.4 mmol/l (3.5-5.1)
[2020-09-24 06:28] LABS: C-REACTIVE PROTEIN 25.1 mg/dL (0-0.9)
--- NOTE | 2020-09-24 06:36 | NUR ---
FIO2 INCREASED TO 90% DUE TO LOW SATURATION.
--- NOTE | 2020-09-24 07:00 | NUR ---
REPORT RECEIVED FROM LIFE ASSURANCE REPRESENTATIVE. PT ON BIPAP, IV INFUSING. SLIGHT TEMP NOTICED. VITAL SIGNS STABLE. RESP TECH IN WITH PT AT THIS TIME
--- NOTE | 2020-09-24 11:00 | NUR ---
PT REMAINS ON BIPAP, VITAL SIGNS INFUSING, CALL LIGHT IN PTS HAND, BED IN LOW POSITION WITH SIDE RAILS UP. NO CHANGE IN PTS STATUS.
--- NOTE | 2020-09-24 11:22 | NUR ---
DOLL EYE SETTER attempted to see pt for follow up. Pt on full-time bipap at this time. Not appropriate for oral diet. Speech therapy will continue to monitor for changes in status to resume oral diet.
--- NOTE | 2020-09-24 13:30 | NUR ---
DR. ROSE HERE TO SEE PT. NEW ORDER FOR D5NS AT 75CC/HR ORDERED.
--- NOTE | 2020-09-24 16:01 | NUR ---
PT LAYING ON RIGHT SIDE, BIPAP REMAINS ON, VITAL SIGNS REMAIN STABLE
--- NOTE | 2020-09-24 17:01 | NUR ---
PT RESTING QUIETLY ON SIDE, CLEANED MASK OUT, SET UP SUCTION IN CASE MOUTH NEEDED TO BE SUCTIONED. PT HELPED TO PULL PT UP IN BED.
--- NOTE | 2020-09-24 17:54 | NUR ---
PTS BLOOD PRESSURE STEADILY RISING, HYDRALAZINE GIVEN PER ORDER. WILL CONTINUE TO MONITER B/P AND VITAL SIGNS. PT TAKING SHALLOW FAST BREATHS ON BIPAP
--- NOTE | 2020-09-24 18:45 | NUR ---
REPORT RECEIVED FROM RESHMA MUSTAFA. CARE ASSUMED.
--- NOTE | 2020-09-24 18:50 | NUR ---
PT PULLING AT BIPAP MASK THIS NURSE INTO ROOM EVENTS FOLLOWS 1852- SUCTIONED PATIENT.CLEANSED MASK. PLACED MASK BACK ON PT 1853- PT NOTED TO BE THERESA AND NO P WAVES 1854- RT AT BEDSIDE 1855- RAPID RESPONSE CALLED (SEE RAPID RESPONSE SHEET) PT AMBU BAGGED AT THIS TIME TO ASSIST IN BRINGING UP O2 SATS. 1899- DR ALEJO PHONED FOR UPDATE ORDERS RECEIVED FOR LABS, ABG, EKG, AND INTUBATE IF NEEDED 1906- PHONED ER FOR MD TO COME AND INTUBATE 1909- DR PURI AT BEDSIDE AT THIS TIME TO INTUBATE. PT STATES "NO I WANT TO " QUESTIONED PT IF SHE UNDERSTOOD HER DECISION. PT STATES YES MAKE ME A DNR. ASSESSED ORIENTATION STATUS PT IS ALERT AND ORIENTED X4. 1914- DR CLARK PHONED FOR DNR ORDER, ALSO ORDERS RECEIVED FOR MORPHINE PRN. PT PLACED BACK ON BIPAP AT 100%FIO2 1919- PHONED ADMIN FOR APPROVAL FOR FAMILY TO VISIT. APPROVAL RECEIVED FAMILY NOTIFIED.
[2020-09-24 19:34] LABS: CREATININE 2.5 mg/dL (0.5-1.0); MAGNESIUM 1.5 mg/dL (1.6-2.3); POTASSIUM 2.9 mmol/l (3.5-5.1)
--- NOTE | 2020-09-24 19:59 | NUR ---
FAMILY AT BEDSIDE AT THIS TIME. WAIVERS OBTAINED AND PLACED ON CHART.
--- NOTE | 2020-09-24 20:11 | NUR ---
FAMILY AT BEDSIDE AT THIS TIME. CALLS THIS NURSE TO ROOM. FAMILY UPSET THAT PT MADE HERSELF A DNR AND REQUESTS THAT WE NOT LISTEN TO HER. EXPLAINED THAT PATIENT IS ALERT AND ORIENTED AND ABLE TO MAKE HER OWN DECISIONS AND THAT WE HAVE TO ABIDE BY HER WISHES. FAMILY SEEMS TO UNDERSTAND AND CONTINUES TO TRY TO TALK PATIENT OUT OF DNR PT SAYS NO I AM READY TO GO.
--- NOTE | 2020-09-24 20:21 | NUR ---
FAMILY CALLED THIS NURSE INTO ROOM STATING THAT PT WANTS TO LIVE. ASKED PT WHAT HER WISHES WERE. PT STATES THAT I AM GOING TO FIGHT FOR MY FAMILY. I QUESTIONED IF NEEDED IF SHE WOULD WANT, CPR, AND INTUBATION. PT STATES YES. FAMILY REQUESTED PHONE TO CALL OTHER FAMILY. DR ALEJO UPDATED WELL.
--- NOTE | 2020-09-24 20:40 | NUR ---
FAMILY REQUESTED THAT NURSE HOLD PATIENT PHONE TO ANSWER IF SOMEONE CALLS EXPLAINED THAT I COULD NOT DO THAT. AND WOULD ASSIST THE PATIENT IF NEEDED.
--- NOTE | 2020-09-24 21:13 | NUR ---
PHONED DR ALEJO REFERENCE LABS. NEW ORDERS RECEIVED.
--- NOTE | 2020-09-24 21:30 | NUR ---
RT AT BEDSIDE FOR REPEAT ABG
--- NOTE | 2020-09-24 21:50 | NUR ---
DR ALEJO NOTIFIED OF ABG RESULTS. ORDERS RECEIVED TO INTUBATE PATIENT. ER NOTIFIED. RT NOTIFIED.
--- NOTE | 2020-09-24 21:53 | NUR ---
SPOKE WITH CARDINAL PHARMACIST JAMAL. WILL Y SITE K 20MEQ WITH D5W. D5W TO RUN AT 75CC/HR AND K 20MEQ TO RUN AT 8CC/HR DUE TO MED NOT AVAILABILE IN [place].
--- NOTE | 2020-09-24 22:05 | NUR ---
INTUBATION FOLLOWS WITH DR TRUJILLO, RT MU, AND NURSING STAFF 2208- ETOMIDATE 40MG GIVEN BY DR TRUJILLO 2209- AUCCS 100MG GIVEN IV BY DR TRUJILLO 2213- 7.5 ET TUBE @ 23 LIP LINE VERIFIED WITH POSITIVE CO2 COLOR CHANGE, AND AUSCULTATED LUNGS BILATERALLY 2215-OG PLACED. PT BRADYCARDIC BAGGED PT TO BRING O2 SATS UP. HYPOTENSIVE WELL. LEVOPHED STARTED. ONLY MAP READING (33) PULLED FOR BOLUS THEN BP STABILIZED. 2219- PT PLACED ON VENT 2224-RESTRAINTS PLACED ON PATIENT 2229- RADIOLOGY AT BEDSIDE FOR STAT PORTABLE CXR
--- NOTE | 2020-09-24 23:26 | NUR ---
MOTHER NOTIFIED OF INTUBATION.
--- NOTE | 2020-09-24 23:33 | NUR ---
RT AT BEDSIDE FOR REPEAT ABG
[2020-09-25] VITALS (28 sets, daily range): BP systolic 119–157; BP diastolic 57–78
--- NOTE | 2020-09-25 00:13 | NUR ---
RT AT BEDSIDE TO MAKE VENT ADJUSTMENTS POST ABG AFTER SPEAKING WITH DR TRUJILLO.
--- NOTE | 2020-09-25 02:15 | NUR ---
pt in bed sedated and intubated. vss on monitor. will continue to monitor closely.
--- NOTE | 2020-09-25 03:22 | NUR ---
RADIOLOGY AT BEDSIDE FOR PORTABLE CXR.
--- NOTE | 2020-09-25 03:31 | NUR ---
TLC DRESSING CHANGE COMPLETED USING STERILE TECHNIQUE.
[2020-09-25 05:18] LABS: HEMATOCRIT 28.2 % (37.0-47.0); HEMOGLOBIN 8.4 g/dl (12.0-16.0); IMMATURE GRANULOCYTES 0.9 % (0.0-5.0); MEAN CORPUSCULAR HGB CONC 29.8 g/dL CAL (32.0-36.0); NEUT# 15.05 thou/uL (2.00-7.15); RED CELL DISTRI WIDTH 15.6 % (11.5-15.5)
--- NOTE | 2020-09-25 05:19 | NUR ---
RT AT BEDSIDE FOR AM ABG.
[2020-09-25 05:45] LABS: ANION GAP 12 (6-22 (CALC)); BUN 52 mg/dL (7-17); BUN/CREATININE RATIO 21 (12-20 (CALC)); CARBON DIOXIDE 31 mmol/l (22-30); CHLORIDE 112 mmol/l (95-108); CREATININE 2.5 mg/dL (0.5-1.0); GFR 21 ML/MIN (>=60 (CALC)); GFR FOR AFR.AMER. 25 ML/MIN (>=60 (CALC)); POTASSIUM 3.1 mmol/l (3.5-5.1); SODIUM 152 mmol/l (137-146)
[2020-09-25 05:57] LABS: C-REACTIVE PROTEIN > 27.0 mg/dL (0-0.9); MAGNESIUM 2.6 mg/dL (1.6-2.3)
--- NOTE | 2020-09-25 06:58 | NUR ---
PT REPORT RECEIVED FROM MACHINE FILLER SERVICER. DIPROVAN REMAINS AT 75, RESTRAINTS IN PLACE. PT HAS LEVOPHED INFUSING AT 8 FOR BLOOD PRESSURE OF 143/67
--- NOTE | 2020-09-25 07:22 | NUR ---
PT SATS 100% WILL CONTINUE TO CLOSELY MONITER.
--- NOTE | 2020-09-25 07:54 | NUR ---
Pt intubated overnight. Please re-consult CERTIFIED GENETIC COUNSELOR services post extubation d/t history of dysphagia.
--- NOTE | 2020-09-25 08:50 | NUR ---
SUCTIONED PTS MOUTH WITH CLEAR THICK SPUTUM COMING FROM RIGHT SIDE OF MOUTH, PT TOLERATED. WEANED SEDATION DOWN TO 25 AND PT STARTED MOVING AROUND, TRYING TO PULL OFF VENT EVEN WITH WRIST RESTRAINTS. INCREASED DIPROVAN AND WILL CONTINUE TO TITRATE UNTIL PT IS NO LONGER TRYING TO PULL OUR TUBE OR STRUGGLING.
--- NOTE | 2020-09-25 11:35 | NUR ---
BLUE SITE ON CENTRAL LINE NOT FLUSHING OR DRAWING BLOOD BACK. UNABLE TO USE FOR SITE FOR IV MEDS. PT VITAL SIGNS REMAIN STABLE SASTS 97%
--- NOTE | 2020-09-25 11:50 | NUR ---
CALL RECEIVED FROM [facility]. SPOKE WITH HOMERO; PT ACCEPTED AT THIS TIME BUT STILL AWAITING BED TO BECOME AVAILABLE.FACE SHEET SENT PER REQUEST TO #[phone]. CASE MANAGEMENT NOTIFIED OF TRANSFER STATUS.
--- NOTE | 2020-09-25 15:42 | NUR ---
SUCTIONED PTS MOUTH , TURNED PT TO LEFT SIDE AND NOTICED PT HAD ANOTHER SMALL AMOUTH OF BM. CLEANED PT UP AGAIN AND CHANGED BED LINENS. VITAL SIGNS STABLE SATS 95% ON VENT SETTINGS. DIPROVAN INFUSING AT 50MCG/KG/MIN, LEVOPHED AT 5MCG/MIN, AND IV FLUIDS AT 75CC/HR.
--- NOTE | 2020-09-25 17:48 | NUR ---
PT LAYING ON BED, VENT SETTINGS CONTINUE THE SAME ALL DAY. IV FLUIDS INFUSING, PT STARTED TO MOVE AROUND AND TRYING TO PULL AT RESTRAINTS INCREASED DIPROVAN TO 60 MCG. PTS VITAL SIGNS STABLE AT THIS TIME.
--- NOTE | 2020-09-25 18:45 | NUR ---
REPORT RECEIVED FROM RESHMA MUSTAFA. CARE ASSUMED.
--- NOTE | 2020-09-25 19:00 | NUR ---
PT RESTING IN BED SEDATED AND INTUBATED. SHIFT ASSESSMENT COMPLETED AT THIS TIME. IV PATENT X1. VSS ON MONITOR. WILL CONTINUE TO MONITOR.
--- NOTE | 2020-09-25 20:15 | NUR ---
NEW BOTTLE OF PROPOFOL STARTED WITH TUBING CHANGE. FAMILY PHONED FOR UPDATE WITH CODE. UPDATE PROVIDED.
--- NOTE | 2020-09-25 21:23 | NUR ---
PHONED [facility] TRANSF[facility] FOR UPDATE. CRISTHIAN STATES THAT THEY ARE STILL WAITING ON A BED ASSIGNMENT DOES NOT FORSEE THAT HAPPENING TONIGHT BUT IF ONE BECOMES AVAILABLE SHE WILL NOTIFY [facility].
--- NOTE | 2020-09-25 22:20 | NUR ---
PT RESTING IN BED INTUBATED AND SEDATED. VSS ON MONITOR. WILL CONTINUE TO MONITOR.
--- NOTE | 2020-09-25 23:45 | NUR ---
VENT ALARMING. RT PHONED TO COME AND ASSESS. PROPOFOL INCREASED DUE TO PT BEING RESTLESS WITH VENT.
[2020-09-26] VITALS (46 sets, daily range): BP systolic 98–158; BP diastolic 49–80
--- NOTE | 2020-09-26 00:54 | NUR ---
PT RESTING IN BED INTUBATED AND SEDATED. VSS ON MONITOR. NEW BAG OF LEVOPHED AND IVF STARTED PER MAR. WILL CONTINUE TO MONITOR CLOSELY
--- NOTE | 2020-09-26 02:24 | NUR ---
pt resting in bed intubated and sedate. no changes noted at this time. will continue to monitor.
--- NOTE | 2020-09-26 03:41 | NUR ---
rt at bedside for am abg.
--- NOTE | 2020-09-26 04:56 | NUR ---
AM LABS OBTAINED FROM [facility]. RADIOLOGY AT BEDSIDE FOR AM CXR
[2020-09-26 05:24] LABS: HEMATOCRIT 24.8 % (37.0-47.0); HEMOGLOBIN 7.6 g/dl (12.0-16.0); IMMATURE GRANULOCYTES 0.7 % (0.0-5.0); MEAN CELL VOLUME 92.5 fL CALC (80.0-100.0); MEAN CORPUSCULAR HGB 28.4 pG CALC (26.0-32.0); MEAN CORPUSCULAR HGB CONC 30.6 g/dL CAL (32.0-36.0); NEUT# 10.33 thou/uL (2.00-7.15); RED BLOOD COUNT 2.68 mill/uL (4.20-5.60); RED CELL DISTRI WIDTH 15.4 % (11.5-15.5)
[2020-09-26 05:51] LABS: ALBUMIN 2.7 g/dL (3.2-5.0); BILIRUBIN, TOTAL 0.5 mg/dL (0.0-1.4); CREATININE 2.2 mg/dL (0.5-1.0); POTASSIUM 3.3 mmol/l (3.5-5.1)
[2020-09-26 05:52] LABS: MAGNESIUM 1.8 mg/dL (1.6-2.3)
--- NOTE | 2020-09-26 07:15 | NUR ---
REPORT RECEIVED FROM RAMSEY JAMES. PT RESTING ON AIRMATTRESS SEMI FOWLERS ON VENTILATOR; ASSIST CONTROL SETTINGS OF RR 20 FIO2 80% TV 400 PEEP 12; 7.5 ET TUBE 23 AT LIP LINE; SPO2 100%. OG TUBE CONNECTED TO LIS WITH YELLOW GASTRIC CONTENT. TL CENTRAL LINE TO RIGHT FEM; PT SEDATED WITH PROPOFOL AT 75 MCG/MIN; LEVOPHED INFUSING AT 5 MCG/MIN; D5W WITH 20K AT 120 ML/HR PER ORDER. SBP IN THE 140'S; LEVOPHED TITRATED DOWN TO 4 MCG/MIN. BILATERAL SOFT WRIST RESTRAINTS IN PLACE; GOOD CSM TO HANDS. SCDS INTACT TO BLE. LUNGS ARE CLEAR. EYES ARE CLOUDY WITH NO NOTABLE PUPILS; PT IS BLIND AT BASELINE. SHAKES HER HEAD TO YES/NO QUESTIONS; SHAKES HER HEAD NO WHEN ASKED IS SHE HAVING PAIN. OPENS EYES BRIEFLY WHEN ASKED, BUT DOES NOT FOLLOW COMMANDS TO FOOD SERVICES COORDINATOR FINGERS. SAFETY MEASURES IN PLACE. NEEDS ARE ANTICIPATED BY STAFF.
--- NOTE | 2020-09-26 07:50 | NUR ---
LEVOPHED TITRATED DOWN TO 3 MCG/MIN.
--- NOTE | 2020-09-26 08:00 | NUR ---
J LUIS, NURSE PRACTITIONER FROM [facility] ICU, CALLED FOR UPDATE ON PATIENT CONDITION.
--- NOTE | 2020-09-26 08:05 | NUR ---
LOVEPHED TITRATED TO 2 MCG/MIN.
--- NOTE | 2020-09-26 08:30 | NUR ---
LEVOPHED TITRATED DOWN TO 1 MCG/MIN.
--- NOTE | 2020-09-26 08:50 | NUR ---
DR. ALEJO AT BEDSIDE. LEVOPHED DISCONTINUED. VERBAL ORDER TO ATTEMPT AWAKENING TRIAL AND PLACE PT ON PRESSURE SUPPORT. PROPOFOL TITRATED DOWN AND CURRENTLY AT 65 MCG/MIN.
--- NOTE | 2020-09-26 09:05 | NUR ---
PROPOFOL TITRATED DOWN TO 55 MCG/MIN.
--- NOTE | 2020-09-26 09:30 | NUR ---
RT AT BEDSIDE FOR AWAKENING TRIAL. PT BECAME TACHYPNEIC; PLACED BACK ON ASSIST CONTROL SETTINGS ON VENTILATOR AND WILL TITRATE PROPOFOL BACK TO 75 MCG/MIN. RT NOTIFIED DR. ALEJO.
--- NOTE | 2020-09-26 09:36 | NUR ---
ROOM ASSIGNMENT RECEIVED FROM HOMERO AT [facility]. ROOM 5A BED 8 ON CRITICAL CARE UNIT. RETURN PHONE NUMBER [phone].
--- NOTE | 2020-09-26 10:03 | NUR ---
TRANSPORT REQUEST CALLED TO [facility]; SPOKE WITH JOI. ETA OF 1.5 TO 2 HOURS.
--- NOTE | 2020-09-26 10:15 | NUR ---
VENEFOR INFUSED. POTASSIUM AND MAGNESIUM NOW INFUSING. PT REPOSITIONED WITH PILLOWS AND AIRMATTRESS SETTINGS. PT HAS MODERATE AMOUNT OF ORAL SECRETIONS; MOUTH SUCTIONING AND ORAL CARE PROVIDED.
--- NOTE | 2020-09-26 10:42 | NUR ---
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
--- NOTE | 2020-09-26 12:22 | NUR ---
MOTHER, MARY BETH, CALLED FOR UPDATE. GIVEN ROOM NUMBER AT [facility] WITH ETA OF TRANSPORT. ALL QUESTIONS ANSWERED TO SATISFACTION. ZOSYN INFUSING. 5 UNITS OF INSULIN GIVEN FOR ACCU CHECK OF 286.
--- NOTE | 2020-09-26 12:31 | NUR ---
CRISTO Vaughan called this group underwriter; group underwriter to call [facility] for updated ETA
--- NOTE | 2020-09-26 12:34 | NUR ---
[facility] transport [facility] called per junior technical writer; ETA 1 hour
--- NOTE | 2020-09-26 14:13 | NUR ---
[facility] ON UNIT; BEDSIDE REPORT GIVEN.
--- NOTE | 2020-09-26 14:25 | NUR ---
REPORT CALLED TO NEAL AT [facility] ICU.
--- NOTE | 2020-09-26 14:33 | NUR ---
Patient transported in stable condition via [facility] to [facility]. All belongings sent with pt. Family updated.
--- NOTE | 2020-09-27 08:22 | NUR ---
CALLED [facility] TO REMOVE THIS PT. FROM BED WAS TOLD THAT THEY ALREADY REMOVED PT FROM BED AT 647 BY ERIN. THE CONFIRMATION NUMBER GIVEN WAS [phone].
== END 2020-09-26 14:33 | disposition short-term general hospital (02) | DRG 208 ==
LOC: MS2 13:08 → ICU 09-22 14:49
PROVIDERS: Internal Medicine; Internal Medicine Nephrology; Nurse Practitioner; ADMIT Internal Medicine; ATTEND Internal Medicine
PROC: 06HY33Z Insertion of Infusion Device into Lower Vein, Percutaneous Approach (ICD-10-PCS; principal; 2020-09-22)
PROC: 5A09457 Assistance with Respiratory Ventilation, 24-96 Consecutive Hours, Continuous Positive Airway Pressure (ICD-10-PCS; 2020-09-22)
PROC: 5A1945Z Respiratory Ventilation, 24-96 Consecutive Hours (ICD-10-PCS; 2020-09-24)
PROC: 0BH17EZ Insertion of Endotracheal Airway into Trachea, Via Natural or Artificial Opening (ICD-10-PCS; 2020-09-24)
DX: U07.1 COVID-19 (principal); J12.82 Pneumonia due to coronavirus disease 2019; J96.21 Acute and chronic respiratory failure with hypoxia; G92 Toxic encephalopathy; E87.3 Alkalosis; N17.9 Acute kidney failure, unspecified; I44.1 Atrioventricular block, second degree; I12.9 Hypertensive chronic kidney disease with stage 1 through stage 4 chronic kidney disease, or unspecified chronic kidney disease; E11.22 Type 2 diabetes mellitus with diabetic chronic kidney disease; N18.30 Chronic kidney disease, stage 3 unspecified; E86.9 Volume depletion, unspecified; E87.6 Hypokalemia; D63.1 Anemia in chronic kidney disease; E11.319 Type 2 diabetes mellitus with unspecified diabetic retinopathy without macular edema; E11.40 Type 2 diabetes mellitus with diabetic neuropathy, unspecified; H54.7 Unspecified visual loss; E66.9 Obesity, unspecified; Z79.4 Long term (current) use of insulin; Z68.35 Body mass index [BMI] 35.0-35.9, adult
CPT/HCPCS: J0131; J1756; J3475; S0164